=== PATIENT | female | born 1945 | race Two or more races ===

== ENCOUNTER 2024-12-13 16:15 | Emergency (ER) | payer MEDICARE ==
[~2024-12-13] VITALS: Ht 160 cm; Wt 60.3 kg
[2024-12-13] MEDS ORDERED: LIDOCAINE 1% INJ 50 ML MDV IJ ONE (16:44)
[2024-12-13 19:11] VITALS: BP 144/69; TEMP 98.4; O2SAT 98
== END 2024-12-13 19:11 | disposition home or self-care (01) ==
LOC: ER 16:28
DX: S01.91XA Laceration without foreign body of unspecified part of head, initial encounter (principal); I10 Essential (primary) hypertension; W01.0XXA Fall on same level from slipping, tripping and stumbling without subsequent striking against object, initial encounter; Y93.89 Activity, other specified; Y92.89 Other specified places as the place of occurrence of the external cause; Y99.8 Other external cause status
CPT/HCPCS: 12014; 70450; 99284; A6403; J3490

== ENCOUNTER 2024-12-20 12:33 | Emergency (ER) | payer MEDICARE ==
[~2024-12-20] VITALS: Ht 157.5 cm; Wt 58.5 kg
[2024-12-20 13:01] VITALS: BP 163/81; TEMP 97.9; O2SAT 99
== END 2024-12-20 13:58 | disposition home or self-care (01) ==
LOC: ER 12:42
DX: S01.81XD Laceration without foreign body of other part of head, subsequent encounter (principal); I10 Essential (primary) hypertension; Z48.02 Encounter for removal of sutures; X58.XXXD Exposure to other specified factors, subsequent encounter